=== PATIENT | male | born 1935 | race Caucasian/White ===

== ENCOUNTER 2019-09-21 09:31 | Emergency (ER) | payer MEDICARE, MEDICAID ==
[~2019-09-21] VITALS: Ht 170.2 cm; Wt 59.1 kg
[2019-09-21] MEDS ORDERED: LORazepam 1 MG tablet PO ONE (12:05)
--- NOTE | 2019-09-21 13:23 | NUR ---
pt is back from MRI.
[2019-09-21 13:25] VITALS: BP 146/109
[2019-09-21] MEDS ORDERED: PRED20TA PO (15:00)
== END 2019-09-21 15:13 | disposition home or self-care (01) ==
LOC: ER 09:31
DX: T16.2XXA Foreign body in left ear, initial encounter (principal); S39.012A Strain of muscle, fascia and tendon of lower back, initial encounter; M54.42 Lumbago with sciatica, left side; M54.41 Lumbago with sciatica, right side; W22.8XXA Striking against or struck by other objects, initial encounter; Y93.89 Activity, other specified; Y92.89 Other specified places as the place of occurrence of the external cause; Y99.8 Other external cause status
CPT/HCPCS: 69200; 72148; 99284